=== PATIENT | female | born 1965 | race Caucasian/White ===

== ENCOUNTER 2018-03-27 09:07 | Inpatient (IN) | payer OTHER ==
[2018-03-27] MEDS: LACTATED RINGER'S 1,000 ML IV ×3 (10:08→22:36)
[2018-03-27] MEDS ORDERED: BUPIVACAINE 0.75%/DEXT (SPINAL) 2 ML INJ (12:52)
[2018-03-27] MEDS ORDERED: ONDANSETRON 4 MG INJ (13:24)
[2018-03-27] MEDS ORDERED: FENTAnyl 50 MCG/ML VIAL (13:24)
[2018-03-27] MEDS ORDERED: DEXAMETHASONE 4 MG/ML 1 ML INJ (13:24)
[2018-03-27] MEDS: TRANEXAMIC ACID 1,000 MG in DEXTROSE 5% 100 ML IV (13:30)
[2018-03-27] MEDS: POLYMYXIN B 500000 UNIT INJ (13:40)
[2018-03-27] MEDS: BACITRACIN 50000 UNITS INJ (13:40)
[2018-03-27] MEDS: POLYMYXIN/BACITRACIN 1L IRRIG (13:40)
[2018-03-27] MEDS ORDERED: NEOMYC/POLYMYX/BACIT 30 GM OINT (14:04)
[2018-03-27] MEDS ORDERED: ROPIVACAINE 0.5 % 30 ML VIAL (14:27)
[2018-03-27] MEDS ORDERED: HYDROmorphONE 2 MG/ML SYG (14:42)
[2018-03-27] MEDS ORDERED: ONDANSETRON 4 MG INJ IV ×2 (15:00→18:00)
[2018-03-27] MEDS: HYDROmorphONE 1 MG/5 ML IV SYRINGE IV ×3 (15:00→15:42)
[2018-03-27] MEDS ORDERED: hydrALAzine 20 MG INJ IV ×2 (15:00→18:00)
[2018-03-27] MEDS ORDERED: LABETALOL HCL 20MG INJ IV ×2 (15:00→18:00)
[2018-03-27] MEDS ORDERED: HYDROmorphONE 1 MG/5 ML IV SYRINGE IV ×2 (15:01→18:00)
[2018-03-27] MEDS ORDERED: CEFAZOLIN 1 GM/50 ML (PMX) 50 ML IVPB (15:22)
[2018-03-27 15:24] LABS: HEMATOCRIT 41.6 % (37.0-47.0); HEMOGLOBIN 13.9 g/dl (12.0-16.0)
[2018-03-27 15:42] LABS: ANION GAP 17 (8-16); BLOOD UREA NITROGEN 16 mg/dl (7-20); CALCIUM 9.8 mg/dl (8.4-10.2); CARBON DIOXIDE 27 mmol/L (21-31); CHLORIDE 101 mmol/L (97-110); CREATININE 0.85 mg/dl (0.44-1.00); GLUCOSE 109 mg/dl (70-220); POTASSIUM 3.6 mmol/L (3.5-5.1); SODIUM 141 mmol/L (135-144)
[2018-03-27] MEDS: CEFAZOLIN 1 GM/50 ML (PMX) 50 ML IVPB ×2 (15:48→22:36)
[2018-03-27] MEDS ORDERED: DIPHENHYDRAMINE 50 MG INJ IV (16:00)
[2018-03-27] MEDS: morphine 2 MG INJ IV ×2 (16:57→20:07)
[2018-03-27] MEDS ORDERED: KETOROLAC 30 MG INJ IV (18:00)
[2018-03-27] MEDS: HYDROCODONE/APAP (5/325) TAB PO (22:36)
[2018-03-27] MEDS: ZOLPIDEM 5 MG TAB PO (22:36)
[2018-03-28] MEDS: morphine 2 MG INJ IV ×4 (02:20→16:51)
[2018-03-28 05:17] LABS: ADD MAN DIFF? NO
[2018-03-28] MEDS: LACTATED RINGER'S 1,000 ML IV (05:20)
[2018-03-28 05:25] LABS: BASOPHILS % 0.1 % (0.0-2.0); HEMOGLOBIN 12.7 g/dl (12.0-16.0); LYMPHOCYTES # 1.1 10^3/ul (0.8-2.9); LYMPHOCYTES % 12.9 % (15.0-51.0); MEAN CORPUSCULAR HEMOGLOBIN 30.7 pg (29.0-33.0); MEAN CORPUSCULAR HGB CONC 34.3 g/dl (32.0-37.0); MEAN CORPUSCULAR VOLUME 89.4 fl (82.0-101.0); MEAN PLATELET VOLUME 10.6 fl (7.4-10.4); MONOCYTE # 0.6 10^3/ul (0.3-0.9); MONOCYTES % 7.5 % (0.0-11.0); NEUTROPHIL # 6.6 10^3/ul (1.6-7.5); PLATELET COUNT 220 10^3/UL (140-415); RED BLOOD COUNT 4.14 10^6/ul (4.20-5.40); RED CELL DISTRIBUTION WIDTH 13.3 % (11.5-14.5)
[2018-03-28 05:25] LABS: WHITE BLOOD COUNT 8.4 10^3/ul (4.8-10.8)
[2018-03-28 05:48] LABS: ANION GAP 14 (8-16); BLOOD UREA NITROGEN 15 mg/dl (7-20); CALCIUM 9.4 mg/dl (8.4-10.2); CARBON DIOXIDE 29 mmol/L (21-31); CHLORIDE 94 mmol/L (97-110); CREATININE 0.72 mg/dl (0.44-1.00); GLUCOSE 125 mg/dl (70-220); POTASSIUM 4.1 mmol/L (3.5-5.1); SODIUM 133 mmol/L (135-144)
[2018-03-28] MEDS: CEFAZOLIN 1 GM/50 ML (PMX) 50 ML IVPB (09:39)
[2018-03-28] MEDS: ASPIRIN (EC) 325 MG TAB PO (09:39)
[2018-03-28] MEDS: HYDROCHLOROTHIAZIDE 25 MG TAB PO (09:40)
[2018-03-28] MEDS: LAMOTRIGINE 100 MG TAB PO (09:40)
[2018-03-28] MEDS: LISINOPRIL 20 MG TAB PO (09:40)
[2018-03-28] MEDS: HYDROCODONE/APAP (5/325) TAB PO ×3 (13:23→23:02)
[2018-03-28] MEDS ORDERED: DOCUSATE SODIUM 100 MG CAP PO (13:30)
[2018-03-28] MEDS: ONDANSETRON 4 MG INJ IV (23:06)
[2018-03-29] MEDS: morphine 2 MG INJ IV ×2 (02:06→13:14)
[2018-03-29] MEDS: HYDROCODONE/APAP (5/325) TAB PO ×4 (05:04→20:57)
[2018-03-29 05:43] LABS: ADD MAN DIFF? NO
[2018-03-29 05:46] LABS: WHITE BLOOD COUNT 8.2 10^3/ul (4.8-10.8)
[2018-03-29 05:46] LABS: BASOPHILS % 0.2 % (0.0-2.0); EOSINOPHILS % 0.2 % (0.0-7.0); HEMATOCRIT 36.5 % (37.0-47.0); HEMOGLOBIN 12.8 g/dl (12.0-16.0); LYMPHOCYTES # 1.4 10^3/ul (0.8-2.9); LYMPHOCYTES % 16.9 % (15.0-51.0); MEAN CORPUSCULAR HEMOGLOBIN 30.6 pg (29.0-33.0); MEAN CORPUSCULAR HGB CONC 35.1 g/dl (32.0-37.0); MEAN CORPUSCULAR VOLUME 87.3 fl (82.0-101.0); MEAN PLATELET VOLUME 10.3 fl (7.4-10.4); MONOCYTE # 0.7 10^3/ul (0.3-0.9); MONOCYTES % 8.2 % (0.0-11.0); NEUTROPHIL # 6.1 10^3/ul (1.6-7.5); PLATELET COUNT 200 10^3/UL (140-415); RED BLOOD COUNT 4.18 10^6/ul (4.20-5.40); RED CELL DISTRIBUTION WIDTH 12.6 % (11.5-14.5)
[2018-03-29 06:17] LABS: ANION GAP 15 (8-16); BLOOD UREA NITROGEN 11 mg/dl (7-20); CARBON DIOXIDE 31 mmol/L (21-31); CHLORIDE 81 mmol/L (97-110); CREATININE 0.69 mg/dl (0.44-1.00); GLUCOSE 115 mg/dl (70-220); POTASSIUM 3.9 mmol/L (3.5-5.1); SODIUM 123 mmol/L (135-144)
[2018-03-29] MEDS: LAMOTRIGINE 100 MG TAB PO (08:58)
[2018-03-29] MEDS: ASPIRIN (EC) 325 MG TAB PO (08:58)
[2018-03-29] MEDS: LISINOPRIL 20 MG TAB PO (09:00)
[2018-03-29] MEDS: HYDROCHLOROTHIAZIDE 25 MG TAB PO (09:01)
[2018-03-29 12:40] LABS: ANION GAP 19 (8-16); BLOOD UREA NITROGEN 12 mg/dl (7-20); CALCIUM 8.9 mg/dl (8.4-10.2); CARBON DIOXIDE 29 mmol/L (21-31); CHLORIDE 81 mmol/L (97-110); CREATININE 0.68 mg/dl (0.44-1.00); GLUCOSE 120 mg/dl (70-220); POTASSIUM 3.6 mmol/L (3.5-5.1); SODIUM 125 mmol/L (135-144)
[2018-03-29 14:51] LABS: SODIUM,URINE RANDOM 122 mmol/L (30-90)
[2018-03-29] MEDS: SOD CHLORIDE 0.9% 500 ML IV (14:51)
[2018-03-29 14:58] LABS: OSMOLALITY,URINE 760 mOsm/kg (250-1200)
[2018-03-29 19:51] LABS: ANION GAP 15 (8-16); BLOOD UREA NITROGEN 12 mg/dl (7-20); CALCIUM 8.8 mg/dl (8.4-10.2); CARBON DIOXIDE 32 mmol/L (21-31); CHLORIDE 77 mmol/L (97-110); CREATININE 0.76 mg/dl (0.44-1.00); GLUCOSE 126 mg/dl (70-220); POTASSIUM 3.9 mmol/L (3.5-5.1); SODIUM 120 mmol/L (135-144)
[2018-03-30] MEDS: ONDANSETRON 4 MG INJ IV (02:56)
[2018-03-30 05:11] LABS: ADD MAN DIFF? NO
[2018-03-30 05:19] LABS: BASOPHILS % 0.1 % (0.0-2.0); EOSINOPHILS # 0.1 10^3/ul (0.0-0.5); EOSINOPHILS % 1.3 % (0.0-7.0); HEMATOCRIT 33.3 % (37.0-47.0); HEMOGLOBIN 11.8 g/dl (12.0-16.0); LYMPHOCYTES # 1.1 10^3/ul (0.8-2.9); MEAN CORPUSCULAR HEMOGLOBIN 30.6 pg (29.0-33.0); MEAN CORPUSCULAR HGB CONC 35.4 g/dl (32.0-37.0); MEAN CORPUSCULAR VOLUME 86.3 fl (82.0-101.0); MEAN PLATELET VOLUME 10.9 fl (7.4-10.4); MONOCYTE # 0.7 10^3/ul (0.3-0.9); MONOCYTES % 9.6 % (0.0-11.0); NEUTROPHILS % 72.6 % (39.0-77.0); PLATELET COUNT 187 10^3/UL (140-415); RED BLOOD COUNT 3.86 10^6/ul (4.20-5.40); RED CELL DISTRIBUTION WIDTH 12.5 % (11.5-14.5)
[2018-03-30 05:19] LABS: WHITE BLOOD COUNT 6.9 10^3/ul (4.8-10.8)
[2018-03-30 05:47] LABS: MAGNESIUM 1.6 mg/dl (1.7-2.5)
[2018-03-30 05:47] LABS: PHOSPHORUS 3.3 mg/dl (2.5-4.9)
[2018-03-30 05:55] LABS: ANION GAP 16 (8-16); BLOOD UREA NITROGEN 14 mg/dl (7-20); CALCIUM 8.7 mg/dl (8.4-10.2); CARBON DIOXIDE 31 mmol/L (21-31); CHLORIDE 77 mmol/L (97-110); CREATININE 0.68 mg/dl (0.44-1.00); GLUCOSE 115 mg/dl (70-220); POTASSIUM 4.3 mmol/L (3.5-5.1); SODIUM 120 mmol/L (135-144)
[2018-03-30] MEDS: ASPIRIN (EC) 325 MG TAB PO (08:22)
[2018-03-30] MEDS: LAMOTRIGINE 100 MG TAB PO (08:22)
[2018-03-30] MEDS: HYDROCODONE/APAP (5/325) TAB PO ×2 (08:23→13:02)
[2018-03-30] MEDS: LISINOPRIL 20 MG TAB PO (08:23)
[2018-03-30] MEDS ORDERED: PATIENT'S OWN MEDICATION PO (09:00)
[2018-03-30 11:02] LABS: ALANINE AMINOTRANSFERASE 14 IU/L (13-69); ASPARTATE AMINO TRANSFERASE 24 IU/L (15-46)
[2018-03-30 11:02] LABS: SODIUM 120 mmol/L (135-144)
[2018-03-30] MEDS: TOLVAPTAN 15 MG TABLET PO (11:06)
[2018-03-30] MEDS: MAGNESIUM SULFATE 2 GM/50 ML 50 ML IVPB (11:06)
[2018-03-30] MEDS ORDERED: BISACODYL 10 MG SUPP PR (16:00)
[2018-03-30 18:00] LABS: SODIUM 119 mmol/L (135-144)
[2018-03-30 21:55] LABS: SODIUM 120 mmol/L (135-144)
[2018-03-30] MEDS: LUBIPROSTONE 8 MCG CAPSULE PO ×2 (22:45→22:47)
[2018-03-31] MEDS: SODIUM CHLORIDE 1 GM TAB PO ×3 (00:33→12:57)
[2018-03-31] MEDS: ONDANSETRON 4 MG INJ IV (03:44)
[2018-03-31 06:37] LABS: ADD MAN DIFF? NO
[2018-03-31 06:45] LABS: WHITE BLOOD COUNT 5.6 10^3/ul (4.8-10.8)
[2018-03-31 06:45] LABS: BASOPHILS % 0.2 % (0.0-2.0); EOSINOPHILS % 0.5 % (0.0-7.0); HEMATOCRIT 32.5 % (37.0-47.0); HEMOGLOBIN 12.1 g/dl (12.0-16.0); LYMPHOCYTES % 18.3 % (15.0-51.0); MEAN CORPUSCULAR HEMOGLOBIN 32.1 pg (29.0-33.0); MEAN CORPUSCULAR HGB CONC 37.2 g/dl (32.0-37.0); MEAN CORPUSCULAR VOLUME 86.2 fl (82.0-101.0); MEAN PLATELET VOLUME 10.8 fl (7.4-10.4); MONOCYTE # 0.5 10^3/ul (0.3-0.9); MONOCYTES % 9.5 % (0.0-11.0); NEUTROPHILS % 71.1 % (39.0-77.0); PLATELET COUNT 227 10^3/UL (140-415); RED BLOOD COUNT 3.77 10^6/ul (4.20-5.40); RED CELL DISTRIBUTION WIDTH 12.4 % (11.5-14.5)
[2018-03-31 07:03] LABS: ANION GAP 15 (8-16); BLOOD UREA NITROGEN 15 mg/dl (7-20); CALCIUM 8.9 mg/dl (8.4-10.2); CARBON DIOXIDE 30 mmol/L (21-31); CHLORIDE 84 mmol/L (97-110); CREATININE 0.85 mg/dl (0.44-1.00); GLUCOSE 110 mg/dl (70-220); POTASSIUM 3.8 mmol/L (3.5-5.1); SODIUM 125 mmol/L (135-144)
[2018-03-31] MEDS: LISINOPRIL 20 MG TAB PO (09:00)
[2018-03-31] MEDS: ASPIRIN (EC) 325 MG TAB PO (09:33)
[2018-03-31] MEDS: LUBIPROSTONE 8 MCG CAPSULE PO ×2 (09:33→20:43)
[2018-03-31] MEDS: LAMOTRIGINE 100 MG TAB PO (09:34)
[2018-03-31] MEDS ORDERED: BISACODYL 10 MG SUPP PR (13:30)
[2018-03-31 15:03] LABS: SODIUM 129 mmol/L (135-144)
[2018-03-31 20:00] LABS: SODIUM 131 mmol/L (135-144)
[2018-03-31] MEDS: DEXTROSE 5% 1,000 ML IV (23:00)
[2018-04-01] MEDS: ZOLPIDEM 5 MG TAB PO ×2 (00:29→23:48)
[2018-04-01 06:16] LABS: ADD MAN DIFF? NO
[2018-04-01 06:26] LABS: BASOPHILS % 0.4 % (0.0-2.0); EOSINOPHILS # 0.1 10^3/ul (0.0-0.5); EOSINOPHILS % 1.7 % (0.0-7.0); HEMOGLOBIN 11.5 g/dl (12.0-16.0); LYMPHOCYTES # 1.4 10^3/ul (0.8-2.9); LYMPHOCYTES % 26.9 % (15.0-51.0); MEAN CORPUSCULAR HEMOGLOBIN 30.6 pg (29.0-33.0); MEAN CORPUSCULAR HGB CONC 34.8 g/dl (32.0-37.0); MEAN CORPUSCULAR VOLUME 87.8 fl (82.0-101.0); MEAN PLATELET VOLUME 10.3 fl (7.4-10.4); MONOCYTE # 0.6 10^3/ul (0.3-0.9); MONOCYTES % 11.8 % (0.0-11.0); NEUTROPHIL # 3.1 10^3/ul (1.6-7.5); NEUTROPHILS % 58.6 % (39.0-77.0); PLATELET COUNT 273 10^3/UL (140-415); RED BLOOD COUNT 3.76 10^6/ul (4.20-5.40); RED CELL DISTRIBUTION WIDTH 12.9 % (11.5-14.5)
[2018-04-01 06:26] LABS: WHITE BLOOD COUNT 5.2 10^3/ul (4.8-10.8)
[2018-04-01 06:49] LABS: ANION GAP 13 (8-16); BLOOD UREA NITROGEN 20 mg/dl (7-20); CALCIUM 8.8 mg/dl (8.4-10.2); CARBON DIOXIDE 30 mmol/L (21-31); CHLORIDE 94 mmol/L (97-110); CREATININE 0.76 mg/dl (0.44-1.00); GLUCOSE 108 mg/dl (70-220); POTASSIUM 3.6 mmol/L (3.5-5.1); SODIUM 133 mmol/L (135-144)
[2018-04-01] MEDS: LISINOPRIL 20 MG TAB PO (09:00)
[2018-04-01] MEDS: ASPIRIN (EC) 325 MG TAB PO (09:26)
[2018-04-01] MEDS: LAMOTRIGINE 100 MG TAB PO ×2 (09:26→10:33)
[2018-04-01] MEDS: LUBIPROSTONE 8 MCG CAPSULE PO ×2 (09:26→21:05)
[2018-04-01] MEDS ORDERED: LAMOTRIGINE 25 MG TAB PO (10:00)
[2018-04-01] MEDS ORDERED: LAMOTRIGINE 100 MG TAB PO (10:00)
[2018-04-01 16:58] LABS: SODIUM 133 mmol/L (135-144)
[2018-04-01] MEDS: DEXTROSE 5% 1,000 ML IV ×2 (18:05→21:04)
[2018-04-01 22:38] LABS: SODIUM 132 mmol/L (135-144)
[2018-04-02] MEDS ORDERED: LAMOTRIGINE 100 MG TAB PO (09:00)
[2018-04-02] MEDS: ASPIRIN (EC) 325 MG TAB PO (09:15)
[2018-04-02] MEDS: LAMOTRIGINE 100 MG TAB PO (09:16)
[2018-04-02] MEDS: LUBIPROSTONE 8 MCG CAPSULE PO (09:16)
[2018-04-02] MEDS: LISINOPRIL 20 MG TAB PO (09:18)
[2018-04-02 11:22] LABS: SODIUM 133 mmol/L (135-144)
== END 2018-04-02 19:00 | disposition home health service (06) | DRG 470 ==
LOC: REC 09:07 → TEL 03-30 19:00 → MS1 16:10
PROC: 0SRC069 Replacement of Right Knee Joint with Oxidized Zirconium on Polyethylene Synthetic Substitute, Cemented, Open Approach (ICD-10-PCS; principal; 2018-03-27 10:30)
DX: M17.11 Unilateral primary osteoarthritis, right knee (principal); E22.2 Syndrome of inappropriate secretion of antidiuretic hormone; I10 Essential (primary) hypertension; G40.909 Epilepsy, unspecified, not intractable, without status epilepticus; K59.00 Constipation, unspecified; E66.01 Morbid (severe) obesity due to excess calories; Z68.35 Body mass index [BMI] 35.0-35.9, adult; T50.2X5A Adverse effect of carbonic-anhydrase inhibitors, benzothiadiazides and other diuretics, initial encounter; Y92.238 Other place in hospital as the place of occurrence of the external cause
CPT/HCPCS: 80048; 83735; 83935; 84100; 84295; 84300; 84450; 84460; 84703; 85014; 85018; 85025; 87086; 88304; 88311; 97110; 97116; 97163; 97530